=== PATIENT | male | born 1945 | race Caucasian/White ===

== ENCOUNTER 2016-08-17 09:12 | Emergency (ER) | payer MEDICARE, OTHER ==
[~2016-08-17] VITALS: Ht 182.9 cm; Wt 113.6 kg
[2016-08-17 09:14] VITALS: PULSE 46; RESP 20; O2SAT 98
--- NOTE | 2016-08-17 09:21 | ED.REPORT ---
HPI-Dyspnea / Wheezing Date of Service Aug 17, 2016 ED Provider: The patient is a 71 year old male with history of chronic asthma, congestive heart failure, hypertension, atrial fibrillation, diabetes mellitus, and myasthenia gravis, who presents to the emergency department with multiple complaints. He has experienced a cough over the last 4 months. His symptoms have worsened over the last week and he has also experienced shortness of breath , subjective fever, chills, fatigue, and malaise. Previously he was able to walk 1/2 a block with his walker without symptoms, now he would be extremely short of breath. He was seen by a tool analyst a few weeks ago. He denies chest pain, abdominal pain, nausea, vomiting, diarrhea, weight gain, or increased swelling. He also states he noticed blood on the toilet paper 2 days ago. He does not think there was blood in his stools. He was recently treated for cellulitis. Nursing Notes Stated Complaint: TROUBLE BREATHING/BLOOD IN STOOL Chief Complaint: General Complaint Nursing Notes Reviewed: Yes Allergies: Coded Allergies: No Known Allergies (Unverified , 08/17/16) Scheduled Azithromycin (Zithromax (Z-Abimael)) 250 Mg Tablet 250 MG PO DIRECTED Take two tablets by mouth on day 1, then take one tablet daily on days 2 through 5. Prednisone (PredniSONE) 20 Mg Tablet 40 MG PO DAILY Scheduled PRN Ipratropium/Albuterol Sulfate (Iprat-Albut 0.5-3(2.5) mg/3 mL Inhalant Soln) 3 Ml Ampul.neb 3 ML IH Q6 PRN PRN For Shortness of Breath General Time Seen by MD: 09:24 Chief Complaint Shortness of breath Hx Obtained From: Patient, Spouse Arrived By: Walk-in Sudden in Onset?: No Onset Occurred: More than a week ago... Symptom Duration: Since onset Location: : None Severity: Current: No pain currently Severity: Maximum: No pain Recent Healthcare: No recent hospitalization, Recent doctor visit Similar Sx Previous: No Past Medical History Past Medical History Congestive heart failure Chronic asthma Hypertension Atrial fibrillation Diabetes mellitus Myasthenia gravis GERD Past Surgical History Hip replacement x3 Left knee surgery Cardiac stents Thyroidectomy Family History Noncontributory Social History Recently moved to the area from [place] Other Social History: Good social support, , Local resident Ambulatory Status Walker Review of Systems Review of Systems Note: +rectal bleeding Constitutional: Reports: Chills, Fatigue, Fever (subjective), Malaise Respiratory: Reports: Non-productive cough, Shortness of breath Cardiovascular: Denies: Chest pain Musculoskeletal: Denies: Extremity swelling Complete sys rev & neg: except as marked. GI: Denies: Abdominal pain, Diarrhea, Nausea, Vomiting Physical Exam Initial Vital Signs Vital Signs (First) Date Time Temp Pulse Resp B/P Pulse Ox O2 Delivery O2 Flow Rate FiO2 08/17/16 09:14 36.0 46 20 98 08/17/16 09:28 150/78 08/17/16 09:28 Room Air Initial VS: Reviewed Head / Eyes: Atraumatic, Normocephalic, PERRL ENT: Mucous membranes moist, Conjunctiva normal, No scleral icterus Abdomen / GI: Soft, Non-tender, No guarding, No rebound, No distention Extremities: Vascular intact, Neuro intact, No tenderness Skin: Warm, Dry, No cyanosis Neurologic: Alert, Oriented, Nonfocal Psychiatric: Mood/affect normal, Behavior normal, Normal thought content General/Constitutional: Awake, Alert, Cooperative Appearance / Presentation: Positive: Obese Neck: Atraumatic, Supple, No meningismus, Full range of motion, No swelling, Non-tender, No masses Respiratory / Chest: Breath sounds = bilat, No respiratory distress, No rales, No wheezing Rales / Rhonchi: Positive: Rhonchi diffuse Cardiovascular: Heart rate NL, Regular rhythm, Heart sounds NL, No murmurs, No rubs, Peripheral circulation NL Heart Rate / Rhythm: Negative: Tachycardia Lower Extremity / Pelvis / MS: Neurologic intact, Vascular intact, No edema Interpretation & Diagnostics Lab Results Interpretation Result Diagram: 08/17/16 0953 08/17/16 0953 Test 08/17/16 09:53 08/17/16 10:05 White Blood Count 9.2th/mm3 (3.8-10.1) Red Blood Count 4.74mil/mm3 (4.40-5.80) Hemoglobin 13.9g/dL (13.8-17.2) Hematocrit 42.2% (41.0-50.0) Mean Corpuscular Volume 89.0fL (81-100) Mean Corpuscular Hemoglobin 29.3pg (27.0-35.0) Mean Corpuscular Hemoglobin Concent 32.9% (32.0-37.0) Red Cell Distribution Width 16.7% (12.3-15.4) Platelet Count 155bil/L (150-400) Neutrophils (%) (Auto) 75.7% (40-74) Lymphocytes (%) (Auto) 13.9% (14-46) Monocytes (%) (Auto) 7.4% (4-12) Eosinophils (%) (Auto) 2.3% (0-5) Basophils (%) (Auto) 0.3% (0-3) Prothrombin Time 24.1sec (8.1-12.5) Prothromb Time International Ratio 2.22ratio Sodium Level 140mEq/L (134-144) Potassium Level 4.4mEq/L (3.5-5.2) Chloride Level 102mEq/L (97-108) Carbon Dioxide Level 24mmol/L (18-29) Blood Urea Nitrogen 19mg/dL (8-27) Creatinine 0.85mg/dL (0.76-1.27) Estimat Glomerular Filtration Rate 94mL/min (>59) Glucose Level 153mg/dL (60-99) Calcium Level 9.7mg/dL (8.5-10.1) Magnesium Level 1.7mg/dL (1.6-2.6) Total Bilirubin 0.5mg/dL (0.0-1.2) Aspartate Amino Transf (AST/SGOT) 28U/L (0-50) Alanine Aminotransferase (ALT/SGPT) 16U/L (0-44) Alkaline Phosphatase 92U/L (25-160) Troponin T < 0.010ug/L (0.0-0.011) Pro-B-Type Natriuretic Peptide 1295pg/mL (0-376) Total Protein 7.0g/dL (6.4-8.4) Albumin 4.1g/dL (3.4-5.0) Hold Herr Top Tube Received (Received) ECG Interpretation ECG Interpretation: Atrial fibrillation with PVCs Time: 10:54 Interpreted by: ED physician X-Ray Chest Interpretation Chest Xray Interpretation: IMPRESSION: No acute cardiopulmonary abnormality. Dictated by: Iftikhar Alves M.D. on 08/17/2016 at 10:45 Interpretation / Wet Read by: Wet read ED physician, Interpret - Radiologist Re-Eval/Medical Decision Med Decision/Clinical Course Patient gives a fairly clear story of acute upper respiratory infection in the setting of chronic asthma as well as other chronic medical conditions. He does have a history of congestive heart failure, though clinically at this moment he is not in decompensated congestive heart failure. He has no lower extremity edema and no coronary edema on exam or x-ray. Initially he was unclear as to exact pulmonary history. His tool analyst was briefly consulted over the phone and agrees with discharge plan of a Z-Abimael, prednisone, DuoNeb's. Return in follow-up precautions given. Source of Hx: Old records Re-Evaluation/Progress #1: Time of Eval: 11:03 Re-Evaluation/Progress Note: The patient is feeling a "little" better after the breathing treatment. On re-examination his lung sounds have improved. Discussed results, diagnosis, and plan for road test and discharge. All questions were addressed. Re-Evaluation/Progress #2: Time of Eval: 11:34 Re-Evaluation/Progress Note: The patient was able to ambulate around the department with no problem. Will discharge home. Consultation : Call Returned at: 11:26 Note: Spoke with the patient's tool analyst, Dr. Sol Lentz. The patient is a chronic asthmatic. She recommends steroids and antibiotics, and she will see him in clinic. Counseled Regarding: Diagnosis, Lab results, Need for follow-up, When/why to return to ED Discharge & Departure Impression: Primary Impression: Asthma exacerbation Disposition: Home Discharge Condition All VS Reviewed: Yes Condition: Stable Additional Instructions: Thank you for entrusting us with your care today. Your labs, x-ray, and EKG today are reassuring. There is no sign of pneumonia at this time. Continue taking your regular medication. Use the DuoNeb, steroids, and antibiotics as prescribed. Followup with your tool analyst in the next few days. Please return to the emergency department if you develop increased work of breathing, chest pain, or any other new or concerning symptoms. Referrals: Geraldine Keller (PCP) Scribe Attestation Portions of this note were transcribed by Kristel Carlin. I, Dr. Wang personally performed the history, physical exam and medical decision-making; I reviewed and confirmed the accuracy of the information in the transcribed note. Signed by: Fanny Rodriguez, 08/17/2016 and 1140. copies to: Geraldine Keller Timothy S DO Aug 17, 2016 09:21 Kristel Carlin Aug 17, 2016 09:26
[2016-08-17 09:28] VITALS: BP 150/78; PULSE 85; RESP 20; O2SAT 100
[2016-08-17] MEDS ORDERED: Albuterol-Ipratropium 3 mL Inhalation Solution NEB ONE (09:50)
[2016-08-17 10:12] LABS: BASOPHILS % (AUTO) 0.3 % (0-3); EOSINOPHILS % (AUTO) 2.3 % (0-5); MONOCYTES % (AUTO) 7.4 % (4-12); Mean Corpuscular Hemoglobin 29.3 pg (27.0-35.0); NEUTROPHILS % (AUTO) 75.7 % (40-74); Platelet Count 155 bil/L (150-400)
[2016-08-17 10:20] VITALS: PULSE 73; RESP 20; O2SAT 98
[2016-08-17 10:24] LABS: INR 2.22 ratio
[2016-08-17 10:42] LABS: Magnesium 1.7 mg/dL (1.6-2.6); TROPONIN T < 0.010 ug/L (0.0-0.011)
--- NOTE | 2016-08-17 10:50 | DRSVH ---
PROCEDURE: X-RAY CHEST, TWO VIEWS ([id number]) INDICATIONS: dyspnea TECHNIQUE: 2 views of the chest were acquired. COMPARISON: Chest 02/10/2016; CT chest 07/08/2016 FINDINGS: Surgical changes and devices: None. Lungs and pleura: No pleural effusions or pneumothorax. Lungs are clear. Blunting of the right card iophrenic angle, prominent epicardial fat pad, unchanged. Mediastinum: Mediastinal contours are normal. Heart size is normal. Bones and chest wall: No suspicious bony abnormalities. Degenerative changes first costochondral willem ctions again noted. Soft tissues appear unremarkable. IMPRESSION: No acute cardiopulmonary abnormality. Dictated by: Iftikhar Alves M.D. on 08/17/2016 at 10:45 Approved by: Iftikhar Alves M.D. on 08/17/2016 at 10:49
[2016-08-17] MEDS ORDERED: predniSONE 20 mg Tablet PO ONE (11:30)
[2016-08-17] MEDS ORDERED: IPRA3AMP IH (11:35)
[2016-08-17] MEDS ORDERED: AZIT250T4 PO (11:35)
[2016-08-17] MEDS ORDERED: PRE20 PO (11:35)
[2016-08-17 11:55] VITALS: BP 155/64; PULSE 73; RESP 19; O2SAT 99
== END 2016-08-17 11:56 | disposition home or self-care (01) ==
LOC: SED 09:12
DX: J45.902 Unspecified asthma with status asthmaticus (principal); I25.10 Atherosclerotic heart disease of native coronary artery without angina pectoris; E11.9 Type 2 diabetes mellitus without complications; I10 Essential (primary) hypertension; K21.9 Gastro-esophageal reflux disease without esophagitis; G70.00 Myasthenia gravis without (acute) exacerbation; Z95.5 Presence of coronary angioplasty implant and graft; Z86.79 Personal history of other diseases of the circulatory system; Z79.51 Long term (current) use of inhaled steroids
CPT/HCPCS: 36415; 71020; 80053; 83735; 83880; 84484; 85025; 85610; 93005; 94640; 94664; 99285; J7620